=== PATIENT | male | born 1990 | race Caucasian/White ===

== ENCOUNTER 2018-10-10 16:15 | Emergency (ER) | payer BC, MEDICAID ==
[~2018-10-10] VITALS: Ht 177.8 cm; Wt 83.9 kg
[2018-10-10] MEDS ORDERED: TETANUS-DIPTH-ACEL PERTUSSIS 0.5ML SYRG IM ONE (17:45)
[2018-10-10 19:02] VITALS: BP 132/90
== END 2018-10-10 19:03 | disposition home or self-care (01) ==
LOC: ER 16:15
DX: S42.022A Displaced fracture of shaft of left clavicle, initial encounter for closed fracture (principal); V18.4XXA Pedal cycle driver injured in noncollision transport accident in traffic accident, initial encounter; Y93.89 Activity, other specified; Y99.8 Other external cause status; Y92.89 Other specified places as the place of occurrence of the external cause
CPT/HCPCS: 70450; 71250; 73000; 90471; 90715

== ENCOUNTER 2022-07-08 22:25 | Emergency (ER) | payer BC ==
[~2022-07-08] VITALS: Ht 175.3 cm; Wt 81.8 kg
[2022-07-08] MEDS ORDERED: SODIUM CHLORIDE 0.9% 1,000 ML IV ONE ×2 (23:15→23:30)
[2022-07-08] MEDS ORDERED: cefTRIAXone 1GM/50ML D5W 50 ML IV ONE (23:15)
[2022-07-08] MEDS ORDERED: methylPREDNISolone SOD SUCC 125 MG/2 ML VL IV ONE (23:15)
[2022-07-08 23:17] VITALS: BP 146/93
[2022-07-09] MEDS ORDERED: AMOX-277 PO (02:51)
[2022-07-09] MEDS ORDERED: IBUP800T27 PO (02:51)
[2022-07-09] MEDS ORDERED: PRED20TA2 PO (02:51)
[2022-07-09] MEDS ORDERED: methylPREDNISolone SOD SUCC 125 MG/2 ML VL IV ONE (03:00)
== END 2022-07-09 03:46 | disposition home or self-care (01) ==
LOC: ER 22:28
DX: J03.90 Acute tonsillitis, unspecified (principal)
CPT/HCPCS: 96365; 96375; 96376; 99284; J0696; J2930; J7030